=== PATIENT | female | born 1975 | race Caucasian/White ===

== ENCOUNTER 2022-06-20 10:41 | Emergency (ER) | payer BC ==
[~2022-06-20] VITALS: Ht 162.6 cm; Wt 90.0 kg
[~2022-06-20 10:41] MED LIST: BACTRIM DS1 TAB PO; CIPROFLOXACN500 MG PO; IBUPROFEN600 MG OR; INDERAL LA120 MG OR; MAXZIDE1 TAB OR; ULTRAM50 M1 PO; ZITHROMAX500 MG PO; ZOFRAN ODT4 MG PO
[2022-06-20 11:00] VITALS: BP 140/88
[2022-06-20 12:10] LABS: URINE BLOOD DIPSTICK NEGATIVE (NEGATIVE); URINE COLOR YELLOW; URINE GLUCOSE - DIPSTICK NEGATIVE (NEGATIVE); URINE KETONE NEGATIVE (NEGATIVE); URINE LEUK ESTERASE NEGATIVE (NEGATIVE); URINE PROTEIN - DIPSTICK 100 mg/dL (NEG-TRACE); URINE SPECIFIC GRAVITY >=1.030; URINE UROBILINOGEN - DIPSTICK 0.2 E.U./dL (0.2)
[2022-06-20 12:12] LABS: URINE BILIRUBIN - DIPSTICK SMALL (NEGATIVE); URINE NITRITE - DIPSTICK NEGATIVE (Negative)
[2022-06-20 12:22] LABS: URINE SQUAMOUS EPITHELIAL CELL FEW EPI/hpf (0-FEW)
[2022-06-20] MEDS ORDERED: NAPROXEN500 MG PO (13:48)
[2022-06-20] MEDS ORDERED: BACTRIM DS1 TAB PO (13:48)
[2022-06-20 13:51] VITALS: BP 140/88
== END 2022-06-20 13:58 | disposition home or self-care (01) | DRG 552 ==
LOC: ED 10:41
PROVIDERS: Emergency Medicine
DX: S33.5XXA Sprain of ligaments of lumbar spine, initial encounter (principal); N39.0 Urinary tract infection, site not specified; X58.XXXA Exposure to other specified factors, initial encounter

== ENCOUNTER 2024-09-12 09:34 | Emergency (ER) | payer SELFPAY ==
[~2024-09-12] VITALS: Ht 162.6 cm; Wt 92.8 kg
[2024-09-12] VITALS (7 sets, daily range): BP systolic 120–138; BP diastolic 60–79
[~2024-09-12 09:34] MED LIST changes: +NAPROXEN500 MG PO
[2024-09-12 10:33] LABS: URINE BILIRUBIN - DIPSTICK Negative (NEGATIVE); URINE BLOOD DIPSTICK Negative (NEGATIVE); URINE GLUCOSE - DIPSTICK Negative (NEGATIVE); URINE KETONE Negative (NEGATIVE); URINE LEUK ESTERASE Negative (NEGATIVE); URINE NITRITE - DIPSTICK Negative (Negative); URINE PROTEIN - DIPSTICK Negative (NEG-TRACE); URINE SPECIFIC GRAVITY 1.015; URINE UROBILINOGEN - DIPSTICK 0.2 E.U./dL (0.2)
[2024-09-12 10:34] LABS: URINE COLOR Yellow
[2024-09-12 10:35] LABS: BASO% 1.1 % (0-3); EOS% 2.5 % (0-8); HEMATOCRIT 32.1 % (37.0-47.0); IMMATURE GRANULOCYTES 0.1 % (0.0-5.0); LYMPH% 26.4 % (15-41); MEAN CELL VOLUME 62.1 fL CALC (80.0-100.0); MEAN CORPUSCULAR HGB 17.4 pG CALC (26.0-32.0); MONO% 8.1 % (2-13); NEUT# 4.51 thou/uL (2.00-7.15); NEUT% 61.8 % (42-76); RED BLOOD COUNT 5.17 mill/uL (4.20-5.60); RED CELL DISTRI WIDTH 17.8 % (11.5-15.5)
[2024-09-12 10:40] LABS: BILIRUBIN, TOTAL 0.5 mg/dL (0.02-1.3); POTASSIUM 3.8 mmol/l (3.5-5.1)
[2024-09-12 10:58] LABS: ALBUMIN 3.8 g/dL (3.2-5.0)
[2024-09-12] MEDS ORDERED: DULCOLAX10 MG RE (12:51)
[2024-09-12] MEDS ORDERED: GOLYTELY PO (12:51)
== END 2024-09-12 13:23 | disposition home or self-care (01) | DRG 392 ==
LOC: ED 09:34
PROVIDERS: Family Medicine
DX: K59.00 Constipation, unspecified (principal); I10 Essential (primary) hypertension
CPT/HCPCS: Q9967